=== PATIENT | male | born 1945 | race Caucasian/White ===

== ENCOUNTER → 2017-11-04 15:53 | Outpatient (CLI) | payer MEDICARE, SELFPAY ==
[2017-11-04 16:58] LABS: Abs Immature Grans 0.01 k/cumm (0.0-0.09); Absolute Basophil Count 0.05 k/cumm (0.0-0.2); Absolute Eosinophil Count 0.16 k/cumm (0.0-0.7); Absolute Lymphocyte Count 1.23 k/cumm (1.2-3.4); Absolute Monocyte Count 0.62 k/cumm (0.11-0.7); Absolute Neutrophil Count 3.94 k/cumm (1.2-6.7); Basophils % 0.8; Eosinophils % 2.7; HCT 41.2 % (40.0-50.0); HGB 14.2 g/dL (13.5-17.5); Immature Grans % 0.2; Lymphocytes % 20.5; Mean Corp. HGB Concentration 34.5 g/dL (32.0-36.0); Mean Corpuscular Hemoglobin 30.4 pg (27.0-33.0); Mean Corpuscular Volume 88.2 fL (80-95); Monocytes % 10.3; Neutrophils % 65.5; Platelet Count 214 x1000/uL (130-400); RBC 4.67 m/cumm (4.50-6.00); RBC Distribution Width 14.6 % (11.8-14.1); White Blood Cell Count 6.01 k/cumm (4.4-10.8)
[2017-11-04 18:30] LABS: Iron 127 ug/dL (50-175); Total Iron Binding Capacity 347 ug/dL (250-450); Transferrin Sat 37 % (20-55)
[2017-11-04 18:57] LABS: Ferritin 42 ng/mL (8-388); Folate 15.7 ng/mL (8.6-20.0)
[2017-11-04 19:46] LABS: Vitamin B12 > 1000 pg/mL (193-986)
== END ==
PROVIDERS: PCP Internal Medicine; Visit Provider Internal Medicine
DX: D64.9 Anemia, unspecified (principal); R53.83 Other fatigue
CPT/HCPCS: 36415; 82607; 82728; 82746; 83540; 83550; 85025

== ENCOUNTER 2017-11-14 10:57 | Outpatient (RCR) | payer MEDICARE, SELFPAY ==
--- NOTE | 2017-11-14 12:06 | IE_ITS ---
Date: November 14, 2017 Referring: Wu Patel MD M.D. Diagnosis: R vastus lateralis injury, ITB syndrome P.T. Diagnosis: Difficulty with changing positions, difficulty with fast walking SUBJECTIVE: History of Present Illness: Pt describes himself as a semi-retired individual who still does some part-time job related activities in his prior form of employment. 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 Initially, it was just a mild tension, but after 5-6 games of tennis, he started feeling alot more discomfort. He also has some R sided elbow pain, which occurs very intermittently and most currently some L sided neck pain that feels like a point of tension. He feels a little more fatigued lately, but no history of trauma. Pain Ratin/10. Pain at worst 3/10. Prior Level of Function: Unrestricted. Current Level of Function: More hesitation with some of his movements. Previous Treatment: Nothing currently. Social: He lives in [facility] with his . He leaves for [place] in mid- December. Comorbidities: Hiatal hernia. Medications: Prilosec. Quality of Life: __X__ Excellent ____ Good ____ Fair ____ Poor Standardized Measures: Pt failed to accurately complete LEFS. This will be completed at a subsequent visit. OBJECTIVE: Posture: In standing pt demonstrates normalized postural status. Gait: Unremarkable. No evidence of any severe antalgia or ataxia. Palpation: He is slightly tender to palpation through the medial portion of the rectus femoris on the R side. Nontender through the R elbow, either both anterior or posterior, and mild tension through the L side area of the sternocleidomastoid on the neck. An SFMA top tier assessment was completed. Dysfunctional nonpainful pattern through cervical motions, mainly into rotation bilaterally. Multi-segmental extension arms down deep squat and single leg stance. ROM: Measurements for this pt are as follows: Cervical extension WNL and pain free Cervical flexion WNL and pain free Cervical side bending 75% of normal limits and pain free Cervical rotation limited to 75% of available motion bilaterally, mild tension when ranging to either end point. Hip flexion 120 degrees Hip IR 30 degrees Hip ER 45 degrees bilaterally Hip abduction 45 degrees Knee extension 0 degrees Knee flexion 135 degrees Ankle dorsiflexion and plantar flexion WNL Strength: Measurements for this pt are as follows: Hip flexion 4+/5 bilaterally mild tension through the R when in the supine position with the knee extended Quads 5/5 bilaterally no pain Hamstrings 5/5 bilaterally no pain Ankle plantar flexion and dorsiflexion 5/5 bilaterally no pain Glute medius 4-/5 bilaterally Glute dante 4/5 bilaterally Neuro: Pt intact to light touch and sensation through LE dermatomes. Motor control appears intact through associated myotomes and pt demonstrates appropriate proprioception and kinesthetic awareness. Special Tests: Cervical quadrant negative. Spurling testing negative. Uzair test negative. Modified Hyacinth testing mildly positive bilaterally Treatment: IE and assessment of functional abilities, as well as training in a formal exercise program. Pt demonstrated verbal acknowledgment and technique demonstration. IE: X 50700 Direct treatment time: 60 min Total treatment time: 60 min direct pt care ASSESSMENT: Patient is a 72-year-old male with a history of good physical health, referred for PT services with the diagnosis of R vastus lateralis injury, ITB syndrome. Patient presents with clinical signs and symptoms consistent with a mechanical dysfunction through the R anterior thigh, as demonstrated by the following impairment level findings: mild tension through the L side cervical spine, moderate amount of weakness through the gluteals, both lateral and glute dante , moderately positive Modified Hyacinth test and evidence of mal-adapted squatting technique as evidenced by arms downs deep squatting from SFMA. Impairments are contributing to the following functional limitations:difficulty with everyday tasks that are requiring more intensity. Patient is assessed as: __X__ Low 60207 complexity, based on the following: History: (list): Hiatal hernia Examination: (list): Moderately positive modified Hyacinth test, mal-adapted squatting mechanics, weakness through the gluteals. Presentation: X Stable Decision-Making: X Low complexity based on the fact that the pt is still actively involved in tennis, but moderately limited in some of his activities that require a little more intensity, particularly with yardwork. __X__ Patient requires skilled PT intervention to remediate the above functional limitations to return to: __X__ Premorbid level of function Prognosis: __X__ Good as evidence suggests improvement of functional abilities with compliance to a detailed HEP tailored to his diagnosis and following through with PT intervention. Susan-Codes (fill in modifier after appropriate code): Patient's primary functional limitation is in the category of: __X__ Mobility - walking and moving around : [id number] justified by only his minor limitation with everyday tasks and activities Projected goal: Premorbid level of function with no lingering deficits __X__ Mobility - walking and moving around: [id number] modifier to be utilized as justified by above documentation for necessity of continued Physical Therapy intervention to attend to functional deficits which have not been fully remediated as they approach their Medicare cap. STG: __2__ weeks. 1. Pt will be independent in HEP both verbally and with ideal technique demonstration. LTG: __6__ weeks. 1. 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 PLAN: Patient to be seen 1 x per week, for 6 weeks, adjusting frequency of visits per patient symptoms and response to treatment. Treatment to include: X Manual therapy - [id number]: for enhancing muscle extensibility and improving joint arthrokinematics. X Therapeutic exercise - [id number] tactile cues, verbal education and advanced movement correctives for establishing muscle symmetry through the core, pelvic girdle and LEs. X Ultrasound and e-stim available for pain modulation as necessary. The pt will be monitored for compliance to HEP and pts status will be updated accordingly. Plan may be modified as symptoms dictate. Thank you for this referral. Please do not hesitate to contact me with any questions or concerns regarding this patient's plan of care. CHRISTEN/fw MEDICAREDr. Patel, please sign below and return to PT if you agree with above POC. Wu Patel MD Date cc:Wu Patel MD
== END 2017-11-18 23:59 | disposition home or self-care (01) ==
LOC: PT 10:57
PROVIDERS: PCP Internal Medicine; Referring Provider Orthopaedic Surgery; Visit Provider Orthopaedic Surgery
DX: M76.31 Iliotibial band syndrome, right leg (principal); M54.2 Cervicalgia; M25.521 Pain in right elbow; M62.81 Muscle weakness (generalized)
CPT/HCPCS: 97161; G8978

== ENCOUNTER 2019-09-10 10:19 | Outpatient (CLI) | payer MEDICARE, SELFPAY ==
[2019-09-12 04:56] LABS: SARS-CoV-2 RNA Undetected (Undetected); SARS-CoV-2 Specimen Source Nasopharynx
== END 2019-09-10 10:39 ==
PROVIDERS: PCP Family Medicine; Visit Provider Family Medicine
DX: Z03.818 Encounter for observation for suspected exposure to other biological agents ruled out (principal)
CPT/HCPCS: U0003

== ENCOUNTER 2020-07-24 03:36 | Outpatient (CLI) | payer MEDICARE, SELFPAY ==
[2020-07-28 15:51] LABS: Testosterone, Free 3.94 ng/dL (3.08-11.3); Testosterone, Total 164 ng/dL (240-950)
== END 2020-07-24 03:37 | disposition home or self-care (01) ==
LOC: LBO 03:36
PROVIDERS: PCP Family Medicine; Visit Provider Family Medicine
DX: C61 Malignant neoplasm of prostate (principal)
CPT/HCPCS: 36415; 84402; 84403

== ENCOUNTER 2020-08-11 02:17 | Outpatient (CLI) | payer MEDICARE, SELFPAY ==
[2020-08-12 09:01] LABS: PSA, Diagnostic 11.1 ng/mL (0.0-6.5)
== END 2020-08-11 02:18 | disposition home or self-care (01) ==
LOC: LBO 02:17
PROVIDERS: PCP Family Medicine; Visit Provider Family Medicine
DX: C61 Malignant neoplasm of prostate (principal)
CPT/HCPCS: 36415; 84153

== ENCOUNTER 2020-08-22 03:19 | Outpatient (CLI) | payer MEDICARE, SELFPAY ==
--- NOTE | 2020-08-22 | DI.NM_ITS ---
Exam(s) NM BONE SCAN WHOLE BODY GRP EXAM: NM BONE SCAN WHOLE BODY GRP CLINICAL HISTORY: PROSTATE CA, STAGING EXAM,C61. TECHNIQUE: Injected Dose: 25 mCi Tc-99m MDP Delayed Images: 2-3 hours. COMPARISON: MR MRI L LOWER JOINT WO CONT from 12/16/2010 FINDINGS: Symmetric axial uptake. Bilateral renal excretion is identified. No definite increased radiotracer up take is seen to suggest osseous metastatic disease. Symmetric increased uptake is seen in the should ers bilaterally likely degenerative. There are foci of increased activity seen in the ankles which m ay be degenerative. There is a focus of increased radiotracer uptake corresponding to the right late ral tibial plateau. IMPRESSION: 1. No definite evidence of metastatic disease. 2. Increased radiotracer uptake in the region of the right lateral tibial plateau. Clinical history and plain film correlation is recommended. DATA REPOSITORY:
== END 2020-08-22 03:39 ==
PROVIDERS: PCP Family Medicine; Visit Provider Surgery
DX: C61 Malignant neoplasm of prostate (principal); Z12.89 Encounter for screening for malignant neoplasm of other sites
CPT/HCPCS: 78306

== ENCOUNTER 2020-08-28 01:26 | Outpatient (CLI) | payer MEDICARE, SELFPAY ==
--- NOTE | 2020-08-28 14:49 | DI.RAD_ITS ---
Exam(s) XR TIB/FIB RT EXAM: XR TIB/FIB RT CLINICAL HISTORY: PROSTATE CA, F/U ABNL BONE SCAN, INCREASED ACTIVITY RT TIBIA. TECHNIQUE: 2D digital imaging was performed. COMPARISON: MR MRI L LOWER JOINT WO CONT from 12/16/2010 NM NM BONE SCAN WHOLE BODY GRP from 08/22/2020 FINDINGS: BONES: No acute fracture is present. No bony destructive lesion or blastic lesion is seen. Visualized portion of knee and ankle joints are unremarkable. SOFT TISSUE: Mild vascular calcifications. IMPRESSION: Unremarkable radiographs of the right tibia and fibula. No lytic or blastic lesion or significant deg enerative changes to account for the bone scan findings. DATA REPOSITORY: RADIATION DOSE DELIVERED:
== END 2020-08-28 01:46 ==
PROVIDERS: PCP Family Medicine; Visit Provider Surgery
DX: C61 Malignant neoplasm of prostate (principal); R93.7 Abnormal findings on diagnostic imaging of other parts of musculoskeletal system
CPT/HCPCS: 73590

== ENCOUNTER 2020-09-24 01:31 | Outpatient (CLI) | payer MEDICARE, SELFPAY ==
[2020-09-24] MEDS: Omnipaque 350 MG/ML 50 ML BTL PO (08:03)
[2020-09-24] MEDS: Breeza Beverage 473 ML BTL PO ×2 (08:04→08:05)
[2020-09-24 08:15] LABS: ALT 27 U/L (16-63); AST 17 U/L (15-37); Albumin 3.3 g/dL (3.4-5.0); Alkaline Phosphatase 57 U/L (46-116); BUN 12 mg/dL (7-18); Bilirubin, Total 0.3 mg/dL (0.2-1.0); CREATININE 1.4 mg/dL (0.70-1.30); Calcium 8.7 mg/dL (8.5-10.1); Chloride 107 mmol/L (98-107); Estimated GFR 49.27 (mL/min/1.73m2); Glucose 98 mg/dL (74-106); Potassium 4.2 mmol/L (3.5-5.1); Sodium 144 mmol/L (136-145); Total Protein 6.9 g/dL (6.4-8.2)
--- NOTE | 2020-09-24 09:30 | DI.CT_ITS ---
Exam(s) CT CHEST/ABD/PEL W EXAM: CT CHEST/ABD/PEL W CLINICAL HISTORY: PROSTATE CA,C61,STAGING EXAM TECHNIQUE: Imaging Protocol: Axial computed tomography images with coronal and sagittal reformatted images were created and reviewed CONTRAST MATERIAL: Intravenous: Omnipaque 350 Contrast volume:100 mL Oral: Yes COMPARISON: NM NM BONE SCAN WHOLE BODY GRP from 08/22/2020 FINDINGS: CHEST: Tracheobronchial tree: Patent where visualized. Pulmonary parenchyma: No consolidation or dominant measurable mass. No architectural distortion. 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 The left lobe ap pears grossly unremarkable. Mediastinum and [place]: No dominant adenopathy or fluid collection. There is a small hiatal hernia. Pleura: No effusion or pneumothorax. Heart: The heart is not dilated. Mild coronary artery calcification. No pericardial effusion. Aorta: Thoracic aorta non-dilated. Atherosclerosis. Lymph nodes: Within normal limits. Soft tissues: Unremarkable. Bones:Degenerative changes are seen in the spine. There is a sclerotic focus in the posterior medial aspect of the left 9th rib.There is no corresponding increased radiotracer uptake on the patient's b one scan from 08/22/2020. ABDOMEN: Liver: There is diffuse fatty infiltration. There is a tiny hypodensity in the right lobe of the marija er. It is too small for further characterization, but likely reflects a small cyst. Portal, Superior Mesenteric, and Splenic Veins: Unremarkable. Gallbladder and Biliary Tract: Status post cholecystectomy. No biliary ductal dilatation. Pancreas: Normal density, no abnormal calcifications or inflammatory process. Spleen: Normal. Adrenals: No masses seen. Kidneys: Normal size, contour and axis. There is a nonobstructing 2 mm stone in the superior pole of the left kidney. There are tiny hypodensities in both kidneys. They are too small for further [place] cterization, but likely reflect small cysts. Abdominal Aorta: Abdominal portion non-dilated. Atherosclerosis. Bowel: No obstruction or bowel wall thickening. No evidence of appendicitis. Scattered colonic diver ticuli are noted but no evidence of acute diverticulitis. There is a small hiatal hernia. Peritoneal Cavity: No ascites, collection or mesenteric inflammatory response. No free air. Lymph Nodes: Within normal limits. Bones: There is L5 spondylolysis, but no evidence of spondylolisthesis. Multiple hemangioma or fatty rests are seen in the lower thoracic and vertebral bodies. No suspicious lytic or sclerotic lesions are seen. There are areas of sclerosis seen around the sacroiliac joints left greater than right. Soft Tissues: There is a small hiatal hernia. PELVIS: Bladder: Symmetric distention, no gross wall thickening. Reproductive Organs: Unremarkable as visualized. Lymph Nodes: Within normal limits. Bones: Please see above. IMPRESSION: 1. No evidence of abdominal or pelvic metastatic disease. 2. Hepatic steatosis. 3. Left nephrolithiasis. No hydronephrosis. 4. Colonic diverticulosis, but no evidence of acute diverticulitis. 5. No evidence of thoracic metastatic disease. 6. Small sclerotic focus in the medial aspect of the left 9th rib. No corresponding activity is seen on the bone scan from 08/22/2020. This may represent a bone island. Follow-up as clinically appropri ate. RADIATION DOSE DELIVERED: 1,571.2mGy.cm Total DLP DATA REPOSITORY: All CT scans at this facility are submitted to the National Radiology Data Registry (NRDR) Dose Index Registry (DIR) with the [employer] (A[employer]). RADIATION OPTIMIZATION: All CT scans at this facility use at least one of these dose optimization te chniques: automated exposure control; mA and/or kV adjustment per patient size (includes targeted exa ms where dose is matched to clinical indication); or iterative reconstruction.
[2020-09-24] MEDS: Omnipaque 350 MG/ML 100 ML BTL IJ (09:41)
== END 2020-09-24 01:51 ==
PROVIDERS: PCP Family Medicine; Visit Provider Internal Medicine
DX: C61 Malignant neoplasm of prostate (principal); K76.0 Fatty (change of) liver, not elsewhere classified; N20.0 Calculus of kidney; K57.30 Diverticulosis of large intestine without perforation or abscess without bleeding
CPT/HCPCS: 74177; 80053; 71260; J3490; Q9967

== ENCOUNTER 2021-01-20 15:37 | Outpatient (REF) | payer MEDICARE, SELFPAY ==
[2021-01-22 15:03] LABS: COVID-19 RT-PCR UVMMC Result Negative (Negative)
== END 2021-01-20 15:38 | disposition home or self-care (01) ==
LOC: LBN 15:37
PROVIDERS: PCP Family Medicine; Visit Provider Family Medicine
DX: Z20.822 Contact with and (suspected) exposure to COVID-19 (principal)
CPT/HCPCS: U0003

== ENCOUNTER 2021-08-07 21:43 | Emergency (ER) | payer MEDICARE, SELFPAY ==
--- NOTE | 2021-08-07 22:01 | W.ED.GENAD ---
Discharge Plan Disposition Patient Disposition: HOME Condition: Stable Discharge Details Clinical Impression: Laceration of scalp, Head injury, Alcohol intoxication, Fall at home Primary Care Provider: Guille Garnett ED Provider: Yessy Paul Home Meds and New Rx's Prescriptions: Continued epinephrine 0.3 mg/0.3 mL auto-injector 0.3 mg IM Q5-15M PRN (Reason: anaphylaxis) Qty: 2 0RF Rx Instructions: do not exceed 3 doses per episode cholecalciferol (vitamin D3) 50 mcg (2,000 unit) capsule 50 mcg PO DAILY omeprazole magnesium [Prilosec OTC] 20 mg tablet,delayed release (DR/EC) 20 mg PO BID tadalafil [Cialis] 5 mg tablet 5 mg PO DAILY PRN famotidine [Pepcid] 20 mg tablet 20 mg PO DAILY cyanocobalamin (vitamin B-12) [Vitamin B-12] 2,500 mcg tablet, sublingual 2,500 mcg SL .three times weekly No Action hydrocortisone 2.5 % cream 1 applic topical BID PRN (Reason: skin irritation) Qty: 60 2RF Discharge Instructions Instructions: Head Injury (ED), Alcohol Intoxication (ED), Head Laceration (ED) Additional Instructions: The CT scan of your head today showed no evidence of acute concerning or significant findings. Drink plenty of fluids and get plenty of rest. Take Tylenol as needed and directed for pain. Return to the emergency department or follow-up with your primary care doctor in 10 days for staple removal. Return immediately to the emergency department if you develop any worsening or new concerning symptoms such as persistent headache, persistent vomiting or any other concerns. Discharge Data Discharge Date/Time-TO BE ENTERED AT DEPARTURE: 08/08/21 00:08 Discharge Physician: Genevieve Spence Medical Decision Making <MAGDALENO Conner - Last Filed: 08/11/21 23:19> Patient is a pleasant 75 year old male, accompaneid by , wiht c/c of head injury. He reports hiaving had multiple alcoholic beverages at dinner. states he was slurring his words. States that when he stood up to go to bed, he was staggering and fell backward stricking his head against a table. Deniees LOC, othe rinjury at the time of the incident. Patient is not anticoagulated. He denies nausea, vomiting, visual changes, neuro deficit. On exam, patient appears nontoxic. he has a linear laceration on the posterior aspect of this scalp. No other evidence of trauma or skull fracture. Given age and that chivo was intoxicated, will move forward with CT for evaluation of ICH. CT reviewed by radiologist: FINDINGS: Brain: There is mild diffuse heterogeneity of the white matter attenuation, consistent with chronic white matter ischemic changes. There is mild diffuse cerebral atrophy present, consistent with this patient's age. No intracranial hemorrhage, midline shift, or mass effect. No acute loss of allen-white differentiation. Cerebral ventricles: The ventricular system demonstrates mild diffuse compensatory enlargement. Paranasal sinuses: Visualized sinuses are unremarkable. No fluid levels. Mastoid air cells: Visualized mastoid air cells are well aerated. Nasal cavity: Leftward nasal septal deviation and spur. Bones/joints: Unremarkable. No fracture. Soft tissues: Unremarkable. IMPRESSION: No acute abnormality. Secondary to another of my patients needing attention, the closure of the wound was turned Dr. Spence. She also completed discharge instructions for patients laceration and wound care. Please see her procedure note and d/c instructions. 08/08/21 Dr. Jordy Lazar performed procedure for staple placement and assisted with discharge instructions but pt was not evaluated by me. <Genevieve Spence DO - Last Filed: 08/08/21 00:22> 08/08/21 Dr. Jordy Lazar performed procedure for staple placement and assisted with discharge instructions but pt was not evaluated by me. HPI <MAGDALENO Conner - Last Filed: 08/11/21 23:19> General Date/Time Provider Initiated Documentation: 08/07/21 22:01. Limitations to Documentation: no limitations. Information obtained by: patient, family () and RN notes reviewed. History of Present Illness 75 year old M presents to the emergency department with the chief complaint of head injury, described as mild, with intensity rated at 2. Quality is described as aching, and is localized to the head. Patient reports no radiation. Patient started experiencing this minute(s) and it has been constant. No relieving factors improve symptom(s), No exacerbating factors reported . Patient notes no other symptoms.. Patient did receive the following treatments prior to arrival, none Related Data Home Medications Medication Instructions Recorded Confirmed epinephrine 0.3 mg/0.3 mL 0.3 mg (0.3 mL) IM Q5-15M PRN 09/18/19 08/07/21 injection, auto-injector anaphylaxis #2 ea omeprazole magnesium 20 mg 20 mg PO BID 09/18/19 08/07/21 tablet,delayed release (Prilosec OTC) tadalafil 5 mg tablet (Cialis) 5 mg PO DAILY PRN 09/18/19 08/07/21 famotidine 20 mg tablet (Pepcid) 20 mg PO DAILY 09/24/19 08/07/21 cholecalciferol (vitamin D3) 50 50 mcg PO DAILY 01/07/20 08/07/21 mcg (2,000 unit) capsule cyanocobalamin (vitamin B-12) 2,500 mcg sublingual .three times 01/07/20 08/07/21 2,500 mcg sublingual tablet weekly (Vitamin B-12) hydrocortisone 2.5 % topical cream 1 applic topical BID PRN skin 08/11/21 irritation #60 grams Previous Rx's Medication Instructions Recorded epinephrine 0.3 mg/0.3 mL 0.3 mg (0.3 mL) IM Q5-15M PRN 09/18/19 injection, auto-injector anaphylaxis #2 ea hydrocortisone 2.5 % topical cream 1 applic topical BID PRN skin 08/11/21 irritation #60 grams Allergies Allergy/AdvReac Type Severity Reaction Status Date / Time bee venom protein (honey bee) Allergy Severe Facial Verified 01/20/21 14:28 Swelling simvastatin AdvReac Intermediate myalgias Verified 01/20/21 14:28 Review of Systems <MAGDALENO Conner - Last Filed: 08/11/21 23:19> Constitutional Constitutional: Reports as per HPI, Denies frequent falls, Reports headache(s) and Denies weakness Eyes Eyes: Reports as per HPI, Denies blurry vision, Denies change in vision and Reports photophobia ENT Ears, Nose, Mouth, and Throat: Reports headache(s) and Denies neck pain Cardiovascular Cardiovascular: Reports as per HPI, Denies chest pain, Denies lightheadedness, Denies radiating jaw, neck or arm pain and Denies dyspnea on exertion Respiratory Respiratory: Reports as per HPI, Denies chest congestion, Denies cough and Denies dyspnea on exertion Gastrointestinal Gastrointestinal: Reports as per HPI, Denies abdominal pain, Denies change in bowel habits, Denies nausea and Denies vomiting Genitourinary Genitourinary: Reports system reviewed and no additional complaints, except as documented (denies change in urinary habits) Musculoskeletal Musculoskeletal: Reports as per HPI, Denies back pain, Denies neck pain and Denies numbness Integumentary/Breasts Skin/Breast: Reports as per HPI and Denies rash Neurologic Neurologic: Reports as per HPI, Denies abnormal movements, Denies confusion, Denies frequent falls, Reports headache(s), Denies localized weakness, Denies numbness, Denies sensory deficit and Denies weakness Psychiatric Psychiatric: Denies confusion [facility] <MAGDALENO Conner - Last Filed: 08/11/21 23:19> All Active Problems (Updated 08/07/21 @ 23:58 by Genevieve Spence DO) Laceration of scalp (Acute) Head injury (Acute) Alcohol intoxication (Acute) Fall at home (Acute) Knee pain (Acute) Leg pain, right (Acute) Groin strain (Acute) Excessive consumption of ethanol (Acute) History of tobacco use (Acute) GERD (gastroesophageal reflux disease) (Chronic) Primary hypercholesterolemia (Acute) Hiatal hernia (Chronic) Phillip's esophageal ulceration (Acute) Endoscopy Last done on 01/03/13 at [facility] in [place] Q 3 years Prostate cancer (Chronic) Hyperlipidemia (Acute) Medical History (Updated 08/07/21 @ 23:58 by Genevieve Spence DO) Non-melanoma skin cancer Surgical History H/O partial thyroidectomy (~1979) History of cholecystectomy (~2014) History of prostate surgery (~2014) Prostate Lasar ablation Family History Mother Hyperlipidemia Father , age 96 Hyperlipidemia Sister No problems noted. Sister No problems noted. Maternal Grandfather , age 82 No problems noted. Paternal Grandfather , age 55 No problems noted. Maternal Grandmother , age 97 Asthma Paternal Grandmother , age 92 No problems noted. Social History Smoking/Tobacco Use Status: Former Tobacco Use Second Hand Exposure: Yes Smoking risk assessment performed?: Yes Alcohol Intake: current Alcohol Intake frequency: 3 or more drinks per day Alcohol type: wine Drug use: Current Sobriety Substance use type: marijuana Caregiver/Support person: No Household members: spouse Housing: house Do you need help understanding health information?: Never Pets and animals: Yes Pets and animals: cat(s) Sexually active: Yes Do you think of yourself as: straight/heterosexual Current gender identity: male What is your relationship status?: How often do you talk on the phone with friends or family?: three or more times per week How often do you get together with friends or relatives?: three or more times per week How often do you attend yazdanism or temple services?: 1-3 times per year Do you belong to any clubs or organized social groups?: yes Panel score (0-1 are the most socially isolated patients): 3 What type of physical activity do you participate in: walking, bicycling and other Details: tennis Duration: 15-30 minutes/day Frequency: 5-6 times per week Batsheva/Alevism: Adventist Special batsheva needs: No Seatbelt use: always Helmet use: No Drive intox 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 Ears: hearing grossly normal bilaterally, external ears normal and TM's normal bilaterally General nose exam: external nose normal Mouth: oral mucosae normal and moist mucous membranes Throat: posterior oropharynx normal Eyes General: appearance normal, both eyes and all related structures Alignment and Position: alignment normal Periorbital: periorbital findings normal Eyelids: eyelids normal Sclera: sclerae normal Cornea: corneas normal Pupils: PERRL EOM: EOM intact bilaterally Neck Neck: normal visual inspection and full ROM Resp Effort & Inspection: normal respiratory effort, able to speak in complete sentences and no respiratory distress Auscultation: clear to auscultation bilaterally, no rales, no rhonchi and no wheezes Cardio Rate: regular rate Rhythm: regular rhythm Heart Sounds: S1 normal and S2 normal GI Inspection: normal to inspection and non-distended Palpation: soft, no hepatosplenomegaly, not firm, no guarding, not rigid and nontender Percussion: normal to percussion Auscultation: normal bowel sounds Back/Spine/Pelvis Cervical Spine: normal cervical lordosis, cervical ROM normal, No cervical spinal tenderness and No step off deformity Thoracic/Lumbar Spine: thoracic and lumbar spine normal to inspection Skin Trauma: laceration Neuro General: patient alert, patient awake and patient oriented x3 Cranial Nerves: CN's II-XI intact bilaterally Cognition: normal cognition Speech: speech normal Gait: normal gait Motor: muscle tone normal throughout, strength 5/5 throughout, no pronator drift, no movement abnormalities noted and no fasciculations Sensory Exam: no sensory deficits noted Coordination: lxbmic-wy-ljog test normal and bgyz-ic-ufaz test normal Extrem General: normal to inspection, capillary refill normal, no pedal edema and no calf tenderness Psych Appearance: grossly normal and well kempt Mental Status: mental status grossly normal Speech and Movement: speech and movement normal <Genevieve Spence, DO - Last Filed: 08/08/21 00:22> Laceration Laceration 1: Site: scalp Side (If applicable): left Size (cm): 4 Description: linear Depth: simple, single layer Pre-repair: wound explored, irrigated extensively and deep structures intact Skin layer closed with: other ([place]) Number of sutures: 7
[2021-08-07 22:10] VITALS: BP 114/70; PULSE 67; RESP 18; TEMP 36.5; O2SAT 98
--- NOTE | 2021-08-07 22:15 | DI.CT_ITS ---
Exam(s) CT HEAD WO EXAM: CT HEAD WO CLINICAL HISTORY: fall, struck head. TECHNIQUE: Imaging Protocol: Axial computed tomography images with coronal and sagittal reformatted images were created and reviewed COMPARISON: No exams were available for comparison FINDINGS: Ventricles and Extra axial spaces: Normal in size and morphology for the patient's age. Hemorrhage: None. Cerebral parenchyma: No acute territorial infarct. There are areas of decreased attenuation in the w gunnar matter most consistent with small vessel ischemic disease. Midline shift: None. Brainstem/Cerebellum: Normal. Calvarium: Normal. Visualized Paranasal sinuses/Mastoids: Clear. Soft Tissues: Subcutaneous edema and a laceration are seen in the high left posterior parietal soft t issues. IMPRESSION: No acute intracranial process. RADIATION DOSE DELIVERED: 759.52mGy.cm Total DLP DATA REPOSITORY: All CT scans at this facility are submitted to the National Radiology Data Registry (NRDR) Dose Index Registry (DIR) with the [employer] (ACR). RADIATION OPTIMIZATION: All CT scans at this facility use at least one of these dose optimization te chniques: automated exposure control; mA and/or kV adjustment per patient size (includes targeted exa ms where dose is matched to clinical indication); or iterative reconstruction.
--- NOTE | 2021-08-07 23:15 | DI.VRAD_ITS ---
PROCEDURE INFORMATION: Exam: CT Head Without Contrast Exam date and time: 08/07/2021 10:58 PM Age: 75 years old Clinical indication: Injury or trauma; Blunt trauma (contusions or hematomas); Consciousness not specified; Injury date: 08/07/21; Injury details: Fall, struck head TECHNIQUE: Imaging protocol: Computed tomography of the head without contrast. Radiation optimization: All CT scans at this facility use at least one of these dose optimization techniques: automated exposure control; mA and/or kV adjustment per patient size (includes targeted exams where dose is matched to clinical indication); or iterative reconstruction. COMPARISON: NM BONE SCAN WHOLE BODY GRP 08/22/2020 1:14 PM FINDINGS: Brain: There is mild diffuse heterogeneity of the white matter attenuation, consistent with chronic white matter ischemic changes. There is mild diffuse cerebral atrophy present, consistent with this patient's age. No intracranial hemorrhage, midline shift, or mass effect. No acute loss of allen-white differentiation. Cerebral ventricles: The ventricular system demonstrates mild diffuse compensatory enlargement. Paranasal sinuses: Visualized sinuses are unremarkable. No fluid levels. Mastoid air cells: Visualized mastoid air cells are well aerated. Nasal cavity: Leftward nasal septal deviation and spur. Bones/joints: Unremarkable. No fracture. Soft tissues: Unremarkable. IMPRESSION: No acute abnormality. Dictated and Authenticated by: David Wyatt MD. Ordering:NAIF Krishnamurthy MD
[2021-08-07] MEDS: Famotidine 20 MG TAB 40 MG PO (23:34)
[2021-08-07] MEDS: Acetaminophen 500 MG TAB 1000 MG PO (23:58)
[2021-08-08 00:08] VITALS: PULSE 67; RESP 16; O2SAT 100
== END 2021-08-08 00:08 | disposition home or self-care (01) ==
PROVIDERS: Emergency Provider Physician Assistant; PCP Family Medicine
DX: S01.01XA Laceration without foreign body of scalp, initial encounter (principal); F10.129 Alcohol abuse with intoxication, unspecified; S09.8XXA Other specified injuries of head, initial encounter; W18.39XA Other fall on same level, initial encounter
CPT/HCPCS: 12002; 99284; 70450; 99283

== ENCOUNTER 2021-08-16 14:04 | Emergency (ER) | payer MEDICARE, SELFPAY ==
[2021-08-16 14:16] VITALS: BP 133/63; PULSE 69; RESP 17; TEMP 37.1; O2SAT 96
--- NOTE | 2021-08-16 14:29 | W.ED.GENAD ---
Discharge Plan Disposition Patient Disposition: HOME Condition: Improving Discharge Details Clinical Impression: Encounter for removal of [place] Primary Care Provider: Guille Garnett ED Provider: Tommy Laughlin Home Meds and New Rx's Prescriptions: Continued epinephrine 0.3 mg/0.3 mL auto-injector 0.3 mg IM Q5-15M PRN (Reason: anaphylaxis) Qty: 2 0RF Rx Instructions: do not exceed 3 doses per episode cholecalciferol (vitamin D3) 50 mcg (2,000 unit) capsule 50 mcg PO DAILY omeprazole magnesium [Prilosec OTC] 20 mg tablet,delayed release (DR/EC) 20 mg PO BID tadalafil [Cialis] 5 mg tablet 5 mg PO DAILY PRN famotidine [Pepcid] 20 mg tablet 20 mg PO DAILY cyanocobalamin (vitamin B-12) [Vitamin B-12] 2,500 mcg tablet, sublingual 2,500 mcg SL .three times weekly hydrocortisone 2.5 % cream 1 applic topical BID PRN (Reason: skin irritation) Qty: 60 2RF Discharge Instructions Additional Instructions: [place] removed without difficulty. Please watch for new or worsening symptoms and return to the ER for any concerns. Medical Decision Making 75-year-old gentleman presents for staple removal, [place] placed 9 days ago. He is currently asymptomatic, has no acute concerns or complaints. Clinically he appears well, nontoxic, neurologically intact. 7 [place] removed by me without difficulty. Patient tolerated well Standard discharge and return precautions were provided. Patient understands, is agreeable to this plan, and has no additional questions or concerns upon discharge. This documentation was generated using Doctor kinetication system, please disregard any oddities of phrase or misspellings. Medical Records Medical records reviewed: Yes I reviewed the patient's medical records. HPI General Mode of arrival: ambulatory. Date/Time Provider Initiated Documentation: 08/16/21 14:26. Limitations to Documentation: no limitations. Information obtained by: patient. HPI Narrative: 75-year-old gentleman presents for staple removal. He fell 9 days ago, 7 [place] were placed. He has no acute concerns or complaints. Denies fever, headache, signs of infection. Related Data Home Medications Medication Instructions Recorded Confirmed epinephrine 0.3 mg/0.3 mL 0.3 mg (0.3 mL) IM Q5-15M PRN 09/18/19 08/07/21 injection, auto-injector anaphylaxis #2 ea omeprazole magnesium 20 mg 20 mg PO BID 09/18/19 08/07/21 tablet,delayed release (Prilosec OTC) tadalafil 5 mg tablet (Cialis) 5 mg PO DAILY PRN 09/18/19 08/07/21 famotidine 20 mg tablet (Pepcid) 20 mg PO DAILY 09/24/19 08/07/21 cholecalciferol (vitamin D3) 50 50 mcg PO DAILY 01/07/20 08/07/21 mcg (2,000 unit) capsule cyanocobalamin (vitamin B-12) 2,500 mcg sublingual .three times 01/07/20 08/07/21 2,500 mcg sublingual tablet weekly (Vitamin B-12) hydrocortisone 2.5 % topical cream 1 applic topical BID PRN skin 08/11/21 irritation #60 grams Previous Rx's Medication Instructions Recorded epinephrine 0.3 mg/0.3 mL 0.3 mg (0.3 mL) IM Q5-15M PRN 09/18/19 injection, auto-injector anaphylaxis #2 ea hydrocortisone 2.5 % topical cream 1 applic topical BID PRN skin 08/11/21 irritation #60 grams Allergies Allergy/AdvReac Type Severity Reaction Status Date / Time bee venom protein (honey bee) Allergy Severe Facial Verified 01/20/21 14:28 Swelling simvastatin AdvReac Intermediate myalgias Verified 01/20/21 14:28 General Stated Complaint: SutureRem AKILAH: 5 Review of Systems Constitutional Constitutional: Denies fever(s), Denies headache(s) and Denies weakness ENT Ears, Nose, Mouth, and Throat: Denies headache(s) and Denies neck pain Musculoskeletal Musculoskeletal: Denies neck pain, Denies numbness and Denies tingling Integumentary/Breasts Skin/Breast: Denies erythema Neurologic Neurologic: Denies headache(s), Denies numbness, Denies tingling and Denies weakness PFSH All Active Problems Laceration of scalp (Acute) Head injury (Acute) Alcohol intoxication (Acute) Fall at home (Acute) Encounter for removal of [place] (Acute) Knee pain (Acute) Leg pain, right (Acute) Groin strain (Acute) Excessive consumption of ethanol (Acute) History of tobacco use (Acute) GERD (gastroesophageal reflux disease) (Chronic) Primary hypercholesterolemia (Acute) Hiatal hernia (Chronic) Phillip's esophageal ulceration (Acute) Endoscopy Last done on 01/03/13 at [facility] in [place] Q 3 years Prostate cancer (Chronic) Hyperlipidemia (Acute) Medical History Non-melanoma skin cancer Surgical History H/O partial thyroidectomy (~1979) History of cholecystectomy (~2014) History of prostate surgery (~2014) Prostate Lasar ablation Family History Mother Hyperlipidemia Father , age 96 Hyperlipidemia Sister No problems noted. Sister No problems noted. Maternal Grandfather , age 82 No problems noted. Paternal Grandfather , age 55 No problems noted. Maternal Grandmother , age 97 Asthma Paternal Grandmother , age 92 No problems noted. Social History Smoking/Tobacco Use Status: Former Tobacco Use Second Hand Exposure: Yes Smoking risk assessment performed?: Yes Alcohol Intake: current Alcohol Intake frequency: 3 or more drinks per day Alcohol type: wine Drug use: Current Sobriety Substance use type: marijuana Caregiver/Support person: No Household members: spouse Housing: house Do you need help understanding health information?: Never Pets and animals: Yes Pets and animals: cat(s) Sexually active: Yes Do you think of yourself as: straight/heterosexual Current gender identity: male What is your relationship status?: How often do you talk on the phone with friends or family?: three or more times per week How often do you get together with friends or relatives?: three or more times per week How often do you attend congregation or advent services?: 1-3 times per year Do you belong to any clubs or organized social groups?: yes Panel score (0-1 are the most socially isolated patients): 3 What type of physical activity do you participate in: walking, bicycling and other Details: tennis Duration: 15-30 minutes/day Frequency: 5-6 times per week Batsheva/Roman Catholic: Taoism Special batsheva needs: No Seatbelt use: always Helmet use: No Drive intox 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 Well-healing laceration that is approximated with 7 [place]. No signs of secondary infection, drainage, tenderness. Mouth: moist mucous membranes Eyes General: appearance normal, both eyes and all related structures Conjunctivae: conjunctivae normal Neck Neck: normal visual inspection, full ROM, trachea midline, supple and nontender Resp Effort & Inspection: normal respiratory effort and able to speak in complete sentences Cardio Rate: regular rate Rhythm: regular rhythm Skin General skin exam: no rashes or lesions noted Neuro General: patient alert, patient awake, moves all extremities and no focal motor deficits Sensory Exam: no sensory deficits noted Psych Appearance: grossly normal Mental Status: mental status grossly normal Course Vital Signs Vital signs: Vital Signs Temperature 37.1 C 08/16/21 14:16 Pulse 69 08/16/21 14:16 Respiratory Rate 17 08/16/21 14:16 Blood Pressure 133/63 08/16/21 14:16 Pulse Oximetry 96 08/16/21 14:16 Temperature 37.1 C 08/16/21 14:16 Temperature Source Tympanic 08/16/21 14:16 Pulse 69 08/16/21 14:16 Respiratory Rate 17 08/16/21 14:16 Blood Pressure 133/63 08/16/21 14:16 Pulse Oximetry 96 08/16/21 14:16 Oxygen Delivery Method Room Air 08/16/21 14:16 Oxygen Flow Rate 0 08/16/21 14:16
== END 2021-08-16 14:35 | disposition home or self-care (01) ==
PROVIDERS: Emergency Provider Physician Assistant; PCP Family Medicine
DX: S01.01XD Laceration without foreign body of scalp, subsequent encounter (principal); X58.XXXD Exposure to other specified factors, subsequent encounter; Z48.02 Encounter for removal of sutures
CPT/HCPCS: 99282

== ENCOUNTER 2021-10-15 03:10 | Outpatient (CLI) | payer MEDICARE, SELFPAY ==
[2021-10-15 15:45] LABS: Abs Immature Grans 0.02 10^3/uL (0.0-0.06); Absolute Basophil Count 0.04 10^3/uL (0.0-0.2); Absolute Eosinophil Count 0.35 10^3/uL (0.0-0.7); Absolute Lymphocyte Count 0.85 10^3/uL (1.2-3.4); Absolute Monocyte Count 0.53 10^3/uL (0.1-0.8); Absolute Neutrophil Count 3.74 10^3/uL (1.2-6.7); Basophils % 0.7; Eosinophils % 6.3; HCT 38.5 % (40.0-50.0); Immature Grans % 0.4; Lymphocytes % 15.4; MCH 29.7 pg (27.0-33.0); MCHC 33.8 % (32.0-36.0); MCV 88 fL (80-95); MPV 11.6 fL (8.0-11.0); Monocytes % 9.6; Neutrophils % 67.6; Platelet Count 205 10^3/uL (130-400); RBC 4.37 10^6/uL (4.36-5.78); RDW 13.9 % (11.8-14.1); RDW-SD 45.8 fL; WBC 5.53 10^3/uL (4.4-10.8)
[2021-10-15 16:37] LABS: Iron 87 ug/dL (65-175); Total Iron Binding Capacity 287 ug/dL (250-450); Transferrin Sat 30 % (20-55)
[2021-10-15 16:47] LABS: ALT 33 U/L (16-63); AST 17 U/L (15-37); Albumin 3.7 g/dL (3.4-5.0); Alkaline Phosphatase 69 U/L (46-116); Anion Gap 9.6 mmol/L (3-11); BUN 14 mg/dL (7-18); Bilirubin, Total 0.3 mg/dL (0.2-1.0); CO2 25.4 mmol/L (21.0-32.0); CREATININE 1.3 mg/dL (0.70-1.30); Calcium 8.7 mg/dL (8.5-10.1); Chloride 105 mmol/L (98-107); Estimated GFR 53.53 (mL/min/1.73m2); Ferritin 118 ng/mL (26-388); Glucose 123 mg/dL (74-106); Potassium 3.8 mmol/L (3.5-5.1); Sodium 140 mmol/L (136-145); Total Protein 6.8 g/dL (6.4-8.2)
[2021-10-18 14:05] LABS: Lab Add On Test DONE
[2021-10-18 14:22] LABS: Hemoglobin A1C 5.6 % (<5.7)
== END 2021-10-15 03:11 | disposition home or self-care (01) ==
LOC: LBO 03:10
PROVIDERS: PCP Family Medicine
DX: R73.9 Hyperglycemia, unspecified (principal); D50.0 Iron deficiency anemia secondary to blood loss (chronic)
CPT/HCPCS: 36415; 80053; 82728; 83036; 83540; 83550; 85025

== ENCOUNTER 2021-11-27 01:38 | Outpatient (CLI) | payer MEDICARE, SELFPAY ==
[2021-11-30 09:21] LABS: Hep B Core Antibody Negative (Negative)
[2021-11-30 09:41] LABS: Hep A Total Ab w Rflx IgM Negative (Negative)
== END 2021-11-27 01:39 | disposition home or self-care (01) ==
LOC: LBO 01:38
PROVIDERS: PCP Family Medicine; Visit Provider Family Medicine
DX: Z78.9 Other specified health status (principal)
CPT/HCPCS: 36415; 86704; 86709

== ENCOUNTER 2021-12-16 03:27 | Outpatient (CLI) | payer MEDICARE, SELFPAY ==
[2021-12-16 22:45] LABS: PSA, Diagnostic <0.1 ng/mL (<=6.5)
[2021-12-27 15:27] LABS: Testosterone, Total 48 ng/dL (240-950)
== END 2021-12-16 03:28 | disposition home or self-care (01) ==
LOC: LBO 03:27
PROVIDERS: PCP Family Medicine
DX: C61 Malignant neoplasm of prostate (principal)
CPT/HCPCS: 36415; 84403; 84153

== ENCOUNTER 2023-10-17 09:37 | Outpatient (CLI) | payer MEDICARE, SELFPAY ==
[2023-10-17 15:46] LABS: Abs Immature Grans 0.02 10^3/uL (0.0-0.06); Absolute Basophil Count 0.08 10^3/uL (0.0-0.2); Absolute Eosinophil Count 0.26 10^3/uL (0.0-0.7); Absolute Lymphocyte Count 0.99 10^3/uL (1.2-3.4); Absolute Monocyte Count 0.47 10^3/uL (0.1-0.8); Absolute Neutrophil Count 4.81 10^3/uL (1.2-6.7); Basophils % 1.2 %; Eosinophils % 3.9 %; HCT 37.5 % (40.0-50.0); HGB 12.4 g/dL (13.5-17.5); Immature Grans % 0.3 %; Lymphocytes % 14.9 %; MCH 28.2 pg (27.0-33.0); MCHC 33.1 % (32.0-36.0); MCV 85 fL (80-95); MPV 11.4 fL (8.0-11.0); Monocytes % 7.1 %; Neutrophils % 72.6 %; Platelet Count 231 10^3/uL (130-400); RDW 13.3 % (11.8-14.1); RDW-SD 41.8 fL; WBC 6.63 10^3/uL (4.4-10.8)
[2023-10-17 16:29] LABS: Iron 82 ug/dL (65-175); Total Iron Binding Capacity 420 ug/dL (250-450); Transferrin Sat 20 % (20-55)
[2023-10-17 16:46] LABS: ALT 38 U/L (16-63); AST 24 U/L (15-37); Albumin 3.7 g/dL (3.4-5.0); Alkaline Phosphatase 66 U/L (46-116); Anion Gap 8.5 mmol/L (3-11); BUN 17 mg/dL (7-18); Bilirubin, Total 0.41 mg/dL (0.2-1.0); CO2 28.5 mmol/L (21.0-32.0); CREATININE 1.6 mg/dL (0.70-1.30); Calcium 9.2 mg/dL (8.5-10.1); Chloride 105 mmol/L (98-107); Estimated GFR 43.56 (mL/min/1.73m2); Ferritin 14 ng/mL (26-388); Glucose 128 mg/dL (74-106); Sodium 142 mmol/L (136-145); Total Protein 6.9 g/dL (6.4-8.2)
[2023-10-17 16:47] LABS: Vitamin B12 > 2000 pg/mL (193-986)
== END 2023-10-17 09:38 | disposition home or self-care (01) ==
LOC: LBO 10-24 09:38
PROVIDERS: PCP Family Medicine; Visit Provider Internal Medicine
DX: D51.0 Vitamin B12 deficiency anemia due to intrinsic factor deficiency (principal); E78.49 Other hyperlipidemia; D64.9 Anemia, unspecified; D50.0 Iron deficiency anemia secondary to blood loss (chronic)
CPT/HCPCS: 36415; 80053; 82607; 82728; 83540; 83550; 85025

== ENCOUNTER → 2023-10-25 00:44 | Outpatient (CLI) | payer MEDICARE, SELFPAY ==
--- NOTE | 2023-10-25 | DI.US_ITS ---
Exam(s) US RENAL EXAM: US RENAL CLINICAL HISTORY: RENAL INSUFFICIENCY, N28.9. TECHNIQUE: Agustin scale, color and spectral Doppler were used. COMPARISON: No exams were available for comparison FINDINGS: Right kidney: 10.7cm Echogenicity: Normal Hydronephrosis: No Cyst or mass: No Nephrolithiasis: No Left kidney: 9.8cm Echogenicity: Normal Hydronephrosis: No Cyst or mass: No Nephrolithiasis: No Bladder: Not well distended but unremarkable. Prevoid vol:106 cc Postvoid vol:Patient unable to void Prostate not visualized. IMPRESSION: Negative renal ultrasound. DATA REPOSITORY:
== END ==
PROVIDERS: PCP Family Medicine; Visit Provider Internal Medicine
DX: N28.9 Disorder of kidney and ureter, unspecified (principal)
CPT/HCPCS: 76770

== ENCOUNTER 2023-11-15 02:57 | Outpatient (CLI) | payer MEDICARE, SELFPAY ==
[2023-11-15 12:17] LABS: Abs Immature Grans 0.02 10^3/uL (0.0-0.06); Absolute Basophil Count 0.08 10^3/uL (0.0-0.2); Absolute Eosinophil Count 0.24 10^3/uL (0.0-0.7); Absolute Lymphocyte Count 1.09 10^3/uL (1.2-3.4); Absolute Monocyte Count 0.68 10^3/uL (0.1-0.8); Absolute Neutrophil Count 4.33 10^3/uL (1.2-6.7); Basophils % 1.2 %; Eosinophils % 3.7 %; HCT 41.8 % (40.0-50.0); HGB 13.5 g/dL (13.5-17.5); Immature Grans % 0.3 %; Lymphocytes % 16.9 %; MCH 27.9 pg (27.0-33.0); MCHC 32.3 % (32.0-36.0); MCV 86 fL (80-95); MPV 12.2 fL (8.0-11.0); Monocytes % 10.6 %; Neutrophils % 67.3 %; Platelet Count 216 10^3/uL (130-400); RBC 4.84 10^6/uL (4.36-5.78); RDW 13.4 % (11.8-14.1); RDW-SD 42.4 fL; WBC 6.44 10^3/uL (4.4-10.8)
[2023-11-15 12:35] LABS: Ferritin 14 ng/mL (26-388)
== END 2023-11-15 02:58 | disposition home or self-care (01) ==
LOC: LOS 02:57
PROVIDERS: PCP Family Medicine; Visit Provider Internal Medicine
DX: D64.9 Anemia, unspecified (principal); N52.9 Male erectile dysfunction, unspecified; C61 Malignant neoplasm of prostate; M67.479 Ganglion, unspecified ankle and foot; R63.5 Abnormal weight gain
CPT/HCPCS: 36415; 82728; 85025